=== PATIENT | female | born 1985 | race Caucasian/White ===

== ENCOUNTER 2018-09-11 14:42 | Observation (INO) ==
[2018-09-11] MEDS ORDERED: Betamethasone Acet/SodPhos 30 MG/5 ML VIAL IM SCH (16:15)
[2018-09-11 16:16] LABS: Bilirubin,Urine Negative (Negative); Blood,Urine Negative (Negative); Clarity,Urine Cloudy (Clear); Color,Urine Yellow (Yellow); Glucose,Urine (UA) Normal (Normal); Ketones,Urine 15 mg/dL (Negative); Leukocyte Esterase,Urine Moderate (Negative); Nitrite,Urine Negative (Negative); PH,Urine 6.5 pH Units (5.0-8.0); Protein,Urine Negative (Neg-Trace); Specific Gravity,Urine 1.011 (1.010-1.025); Urobilinogen,Urine Normal (Normal)
[2018-09-11 16:18] LABS: Bacteria,Urine Few per hpf (None-Few); Hyaline Casts,Urine None Seen per lpf (None-Few); RBC,Urine 0-3 per hpf (0-3); Squamous Epithelial Cell,Urine Many per lpf (None-Few); WBC,Urine 15-30 per hpf (0-3)
== END 2018-09-11 16:59 | disposition home or self-care (01) ==
LOC: 1NENULAB
PROVIDERS: ADMIT Advanced Practice Midwife; ATTEND Advanced Practice Midwife

== ENCOUNTER 2018-09-14 11:38 | Observation (INO) ==
[2018-09-14 12:14] LABS: Basophils # 0.1 K/mcL (0.0-0.2); Basophils % 0.2 %; Eosinophils # 0.1 K/mcL (0.0-0.6); Eosinophils % 0.2 %; Hematocrit 31.9 % (35.3-44.9); Hemoglobin 10.8 g/dL (11.5-15.4); Immature Granulocytes % 1.4 % (0-4); Lymphocytes # 4.4 K/mcL (0.6-4.6); Lymphocytes % 21.1 %; Mean Corpuscular HGB Conc 33.9 g/dL (31.6-35.5); Mean Corpuscular Hemoglobin 34.5 pg (28.0-33.3); Mean Corpuscular Volume 101.9 fL (83.0-100.0); Mean Platelet Volume 9.7 fL (9.4-12.4); Monocytes # 1.8 K/mcL (0.0-1.3); Monocytes % 8.5 %; Neutrophils # 14.3 K/mcL (1.6-8.9); Nucleated Red Blood Cells 0.1 /100 WBC (0); Platelet Count 422 K/mcL (140-400); Red Blood Count 3.13 M/mcL (3.82-4.97); Segmented Neutrophils % 68.6 %; White Blood Count 20.9 K/mcL (4.3-11.1)
[2018-09-14 12:23] LABS: Protein/Creatinine Ratio,Urine 0.24 mg/mg (0.00-0.20)
[2018-09-14 12:24] LABS: Amphetamine Screen,Urine Negative ng/mL (Cutoff=1000); Barbiturate Screen,Urine Negative ng/mL (Cutoff=200); Benzodiazepines Screen,Urine Negative ng/mL (Cutoff=200); Cannabinoid Screen,Urine Negative ng/mL (Cutoff = 50); Cocaine Screen,Urine Negative ng/mL (Cutoff= 300); Opiate Screen,Urine Negative ng/mL (Cutoff=300); Phencyclidine Screen,Urine Negative ng/mL (Cutoff=25)
[2018-09-14 12:33] LABS: Alanine Aminotransferase 19 Units/L (7-52); Aspartate Amino Transferase 14 Units/L (13-39); BUN/Creatinine Ratio 23 (6-26); Blood Urea Nitrogen 10 mg/dL (6-20); Glucose 77 mg/dL (70-105); Lactate Dehydrogenase 131 Units/L (140-271); Uric Acid 3.9 mg/dL (2.3-7.6); eGFR For African Americans > 60 (> 60); eGFR For Non-African Americans > 60 (> 60)
--- NOTE | 2018-09-14 15:10 | OB/GYN Progress Note ---
Date of Encounter: 09/14/18 Time of Encounter: 15:08 - Assessment and Plan (1) 34 weeks gestation of Status: Acute (2) Elevated blood pressure affecting in third trimester, antepartum Status: Acute All blood pressures normotensive while in triage. PIH labs negative. Discharged home with PIH, and labor precautions. Patient verbalizes understanding and in agreement with plan Subjective - Subjective Interval history: 34+0 weeks gestation presents to triage for PIH eval. Patient was seen in the office yesterday by Renée Daley and the patient told her she had been taking her blood pressures at home and she was hypertensive went home with blood pressures 140s to 150s over 90s to 110, patient was normotensive in office visit at that time Renée instructed her to come over to triage for evaluation. She did not present for evaluation until today due to transportation issues. Patient reports good movement, denies vaginal bleeding or leaking of fluid. Also denies headache right upper quadrant pain Antepartum ROS: movement normal, no loss of fluid, no vaginal bleeding, no contractions Objective - Vital Signs Vital Signs: Intake and Output 09/13/18 09/14/18 09/14/18 23:59 07:59 15:59 Other: Weight 76.113 kg Patient Weight 09/14/18 23:59 Weight 76.113 kg - Exam FHR: auscultation normal Abdomen: Present: soft, gravid - Labs Labs: Abnormal lab results WBC 20.9 K/mcL (4.3-11.1) H 09/14/18 11:53 RBC 3.13 M/mcL (3.82-4.97) L 09/14/18 11:53 Hgb 10.8 g/dL (11.5-15.4) L 09/14/18 11:53 Hct 31.9 % (35.3-44.9) L 09/14/18 11:53 MCV 101.9 fL (83.0-100.0) H 09/14/18 11:53 MCH 34.5 pg (28.0-33.3) H 09/14/18 11:53 Plt Count 422 K/mcL (140-400) H 09/14/18 11:53 Neutrophils # 14.3 K/mcL (1.6-8.9) H 09/14/18 11:53 Monocytes # 1.8 K/mcL (0.0-1.3) H 09/14/18 11:53 Nucleated RBCs/100 WBC 0.1 /100 WBC (0) H 09/14/18 11:53 Creatinine 0.44 mg/dL (0.60-1.20) L 09/14/18 11:53 Lactate Dehydrogenase 131 Units/L (140-271) L 09/14/18 11:53 Protein/Creatinin Ratio 0.24 mg/mg (0.00-0.20) H 09/14/18 11:53
== END 2018-09-14 13:05 | disposition home or self-care (01) ==
LOC: 1NENULAB
PROVIDERS: ADMIT Advanced Practice Midwife; ATTEND Advanced Practice Midwife

== ENCOUNTER 2018-09-19 15:54 | Observation (INO) ==
[2018-09-19 17:13] LABS: Amphetamine Screen,Urine Negative ng/mL (Cutoff=1000); Barbiturate Screen,Urine Negative ng/mL (Cutoff=200); Benzodiazepines Screen,Urine Negative ng/mL (Cutoff=200); Cannabinoid Screen,Urine Negative ng/mL (Cutoff = 50); Cocaine Screen,Urine Negative ng/mL (Cutoff= 300); Opiate Screen,Urine Negative ng/mL (Cutoff=300); Phencyclidine Screen,Urine Negative ng/mL (Cutoff=25)
[2018-09-19 17:33] LABS: Bilirubin,Urine Negative (Negative); Blood,Urine Negative (Negative); Clarity,Urine Cloudy (Clear); Color,Urine Yellow (Yellow); Glucose,Urine (UA) Normal (Normal); Ketones,Urine Negative (Negative); Leukocyte Esterase,Urine Large (Negative); Nitrite,Urine Negative (Negative); Protein,Urine Trace mg/dL (Neg-Trace); Specific Gravity,Urine 1.027 (1.010-1.025); Urobilinogen,Urine Normal (Normal)
[2018-09-19 17:35] LABS: Bacteria,Urine Moderate per hpf (None-Few); Hyaline Casts,Urine Few per lpf (None-Few); Squamous Epithelial Cell,Urine Many per lpf (None-Few); WBC,Urine 50-100 per hpf (0-3)
[2018-09-19 17:54] LABS: Calcium Oxalate Crystals,Urine Present
== END 2018-09-19 18:10 | disposition home or self-care (01) ==
LOC: 1NENULAB
PROVIDERS: ADMIT Advanced Practice Midwife; ATTEND Advanced Practice Midwife

== ENCOUNTER 2018-09-26 21:55 | Inpatient (IN) ==
[2018-09-26 21:30] LABS: Basophils # 0.1 K/mcL (0.0-0.2); Basophils % 0.3 %; Eosinophils % 0.1 %; Hematocrit 34.2 % (35.3-44.9); Immature Granulocytes % 0.8 % (0-4); Lymphocytes # 3.1 K/mcL (0.6-4.6); Lymphocytes % 16.1 %; Mean Corpuscular HGB Conc 35.1 g/dL (31.6-35.5); Mean Corpuscular Hemoglobin 35.2 pg (28.0-33.3); Mean Corpuscular Volume 100.3 fL (83.0-100.0); Mean Platelet Volume 9.5 fL (9.4-12.4); Monocytes # 1.2 K/mcL (0.0-1.3); Monocytes % 6.3 %; Neutrophils # 14.7 K/mcL (1.6-8.9); Platelet Count 366 K/mcL (140-400); Red Blood Count 3.41 M/mcL (3.82-4.97); Red Cell Distribution Width 12.8 % (11.5-14.5); Segmented Neutrophils % 76.4 %; White Blood Count 19.3 K/mcL (4.3-11.1)
[2018-09-26 21:40] LABS: Amphetamine Screen,Urine Negative ng/mL (Cutoff=1000); Barbiturate Screen,Urine Negative ng/mL (Cutoff=200); Benzodiazepines Screen,Urine Negative ng/mL (Cutoff=200); Cannabinoid Screen,Urine Negative ng/mL (Cutoff = 50); Cocaine Screen,Urine Negative ng/mL (Cutoff= 300); Opiate Screen,Urine Negative ng/mL (Cutoff=300); Phencyclidine Screen,Urine Negative ng/mL (Cutoff=25)
[~2018-09-26 21:55] MED LIST: *HR* Nalbuphine 10 MG/ML AMPUL IVP PRN; Epidural Premix (fent/bupiv) 110 ML EP ONE; Famotidine 20 MG/2 ML VIAL IVP PRN; Lidocaine 1% 20 ML MDV INFILT PRN; Metoclopramide 10 MG/2 ML VIAL IVP PRN; Naloxone 0.4 MG/ML INJ IVP PRN; Ondansetron 4 MG/2 ML VIAL IVP PRN; Oxytocin 20 units/ LR 1000 mL 20 UNIT/1,000 ML BAG IVC SCH; Penicillin G Potassium 5,000,000 UNIT in 0.9 % Sodium Chloride Mini Bag 100 ML IVPB ONE; Ringers Solution, Lactated 1,000 ML IVC SCH
[2018-09-26] MEDS ORDERED: Epidural Premix (fent/bupiv) 110 ML EP SCH (22:00)
[2018-09-27] MEDS ORDERED: Penicillin G Potassium 2,500,000 UNIT in 0.9 % Sodium Chloride 100 ML IVPB SCH
[2018-09-27] MEDS ORDERED: Oxytocin 20 units/ LR 1000 mL 20 UNIT/1,000 ML BAG IVC SCH (02:41)
[2018-09-27] MEDS ORDERED: Rho Immune Globulin 1,500 UNIT SYRINGE IM PRN (02:41)
[2018-09-27] MEDS: Ibuprofen 600 MG TABLET PO PRN ×3 (03:02→16:56)
[2018-09-27] MEDS: Acetaminophen 325 MG TABLET PO PRN ×3 (04:14→19:28)
[2018-09-27] MEDS: Prenatal Vit/FA 1 EACH TABLET PO SCH (08:07)
[2018-09-28] MEDS: Ibuprofen 600 MG TABLET PO PRN (03:30)
[2018-09-28 08:01] VITALS: BP 121/76
[2018-09-28] MEDS: Acetaminophen 325 MG TABLET PO PRN (08:21)
[2018-09-28] MEDS: Prenatal Vit/FA 1 EACH TABLET PO SCH (08:22)
== END 2018-09-28 10:24 | disposition home or self-care (01) | DRG 560 ==
LOC: 1NENULAB → 1NENUOBS 09-27 02:58
PROVIDERS: ADMIT Registered Nurse; ATTEND Registered Nurse